=== PATIENT | female | born 1970 | race Caucasian/White ===

== ENCOUNTER 2017-11-18 06:28 | Inpatient (IN) | payer OTHER ==
[2017-11-18 06:35] LABS: ADD MAN DIFF? NO
[2017-11-18 06:36] LABS: WHITE BLOOD COUNT 4.5 10^3/ul (4.8-10.8)
[2017-11-18 06:36] LABS: BASOPHILS % 0.9 % (0.0-2.0); EOSINOPHILS # 0.1 10^3/ul (0.0-0.5); HEMATOCRIT 32.2 % (37.0-47.0); HEMOGLOBIN 10.3 g/dl (12.0-16.0); LYMPHOCYTES # 1.7 10^3/ul (0.8-2.9); LYMPHOCYTES % 36.6 % (15.0-51.0); MEAN CORPUSCULAR VOLUME 84.3 fl (82.0-101.0); MEAN PLATELET VOLUME 9.5 fl (7.4-10.4); MONOCYTE # 0.6 10^3/ul (0.3-0.9); MONOCYTES % 13.7 % (0.0-11.0); NEUTROPHIL # 2.1 10^3/ul (1.6-7.5); NEUTROPHILS % 46.4 % (39.0-77.0); PLATELET COUNT 349 10^3/UL (140-415); RED BLOOD COUNT 3.82 10^6/ul (4.20-5.40); RED CELL DISTRIBUTION WIDTH 13.7 % (11.5-14.5)
[2017-11-18] MEDS ORDERED: SODIUM CL BACTERIOSTATIC 30 ML INJ ×2 (06:56→08:43)
[2017-11-18] MEDS ORDERED: VASOPRESSIN 20 UNITS INJ ×2 (06:57→08:43)
[2017-11-18 07:00] LABS: INR 0.89; PROTIME 12.1 Sec (11.9-14.9); PT RATIO 0.9
[2017-11-18 07:01] LABS: PARTIAL THROMBOPLASTIN TIME 28.1 Sec (25.0-35.0)
[2017-11-18 07:04] LABS: ALANINE AMINOTRANSFERASE 47 IU/L (13-69); ALBUMIN 4.3 g/dl (3.3-4.9); ALBUMIN/GLOBULIN RATIO 1.38; ALKALINE PHOSPHATASE 66 IU/L (42-121); ANION GAP 15 (8-16); ASPARTATE AMINO TRANSFERASE 27 IU/L (15-46); BILIRUBIN,INDIRECT 0.5 mg/dl (0-1.1); BILIRUBIN,TOTAL 0.5 mg/dl (0.2-1.3); CARBON DIOXIDE 23 mmol/L (21-31); CHLORIDE 108 mmol/L (97-110); GLUCOSE 94 mg/dl (70-220); TOTAL PROTEIN 7.4 g/dl (6.1-8.1)
[2017-11-18 07:06] LABS: BLOOD UREA NITROGEN 11 mg/dl (7-20); POTASSIUM 3.9 mmol/L (3.5-5.1); SODIUM 142 mmol/L (135-144)
[2017-11-18] MEDS ORDERED: morphine SULFATE/PF (10 MG/10 ML) INJ (07:43)
[2017-11-18] MEDS ORDERED: MIDAZOLAM 1 MG/ML 2 ML INJ (07:43)
[2017-11-18] MEDS ORDERED: BUPIVACAINE 0.75%/DEXT (SPINAL) 2 ML INJ (07:50)
[2017-11-18 09:23] LABS: ADD UMIC YES; UR ASCORBIC ACID NEGATIVE (NEGATIVE); UR BACTERIA FEW /HPF (NONE SEEN); UR BILIRUBIN (Dip) NEGATIVE (NEGATIVE); UR BLOOD (Dip) NEGATIVE (NEGATIVE); UR CLARITY CLOUDY (CLEAR); UR COLOR YELLOW (YELLOW); UR GLUCOSE (Dip) NEGATIVE (NEGATIVE); UR KETONES (Dip) NEGATIVE (NEGATIVE); UR LEUKOCYTE ESTERASE (Dip) 1+ Leu/ul (NEGATIVE); UR MUCUS FEW /HPF (NONE SEEN); UR NITRITE (Dip) NEGATIVE (NEGATIVE); UR RBC 2 /HPF (0-5); UR SPECIFIC GRAVITY (Dip) 1.015 (1.003-1.030); UR SQUAMOUS EPITHELIAL CELL FEW /HPF (FEW); UR TOTAL PROTEIN (Dip) NEGATIVE (NEGATIVE); UR UROBILINOGEN (Dip) NEGATIVE (NEGATIVE); UR WBC 3 /HPF (0-5)
[2017-11-18] MEDS ORDERED: ROCURONIUM 50 MG INJ (09:59)
[2017-11-18] MEDS ORDERED: GLYCOPYRROLATE 0.4 MG INJ (09:59)
[2017-11-18] MEDS ORDERED: PROPOFOL 20 ML (09:59)
[2017-11-18] MEDS ORDERED: ONDANSETRON 4 MG INJ (09:59)
[2017-11-18] MEDS ORDERED: LIDOCAINE 2% (SDV) 5 ML INJ (09:59)
[2017-11-18] MEDS ORDERED: NEOSTIGMINE 3 MG/3 ML SYRINGE (09:59)
[2017-11-18] MEDS ORDERED: CEFAZOLIN 1 GM INJ (10:01)
[2017-11-18] MEDS ORDERED: METOCLOPRAMIDE 10 MG INJ IV (10:30)
[2017-11-18] MEDS ORDERED: ONDANSETRON 4 MG INJ IV (10:30)
[2017-11-18] MEDS ORDERED: ACETAMINOPHEN 325 MG TAB PO (10:30)
[2017-11-18] MEDS ORDERED: HYDROmorphONE 1 MG/5 ML IV SYRINGE IV (10:30)
[2017-11-18] MEDS: CEFAZOLIN 2 GM/50 ML (PMX) 50 ML IVPB ×3 (10:30→21:56)
[2017-11-18] MEDS ORDERED: IBUPROFEN 600 MG TAB PO (10:30)
[2017-11-18] MEDS ORDERED: KETOROLAC 30 MG INJ IV (10:30)
[2017-11-18] MEDS ORDERED: MEPERIDINE 25 MG INJ IV (10:30)
[2017-11-18] MEDS ORDERED: NALOXONE (0.4 MG/ML) INJ IV (10:30)
[2017-11-18] MEDS ORDERED: morphine 2 MG INJ IV (10:30)
[2017-11-18] MEDS ORDERED: FENTAnyl 50 MCG/ML VIAL IV (10:30)
[2017-11-18] MEDS ORDERED: DIPHENHYDRAMINE 50 MG INJ IV (10:30)
[2017-11-18] MEDS ORDERED: HYDROmorphONE 0.5 MG/0.5 ML SYG (10:33)
[2017-11-18] MEDS: HYDROmorphONE 1 MG/5 ML IV SYRINGE IV (10:58)
[2017-11-18] MEDS: metroNIDAZOLE 500 MG/NS (PMX) 100 ML IVPB ×2 (12:05→20:21)
[2017-11-18] MEDS: LACTATED RINGER'S 1,000 ML IV ×2 (12:05→21:06)
[2017-11-18] MEDS: ONDANSETRON 4 MG INJ IV (16:49)
[2017-11-18] MEDS ORDERED: DEXTROSE 5%-LR 1,000 ML IV ×3 (18:43→19:00)
[2017-11-18] MEDS: METOCLOPRAMIDE 10 MG INJ IV (19:06)
[2017-11-18] MEDS: DEXTROSE 5% IV (19:07)
[2017-11-18] MEDS: [UNRECOGNIZED DRUG - OTHER] IV (19:07)
[2017-11-18] MEDS: HYDROCODONE/APAP (5/325) TAB PO (21:24)
[2017-11-19] MEDS: metroNIDAZOLE 500 MG/NS (PMX) 100 ML IVPB (02:52)
[2017-11-19 05:15] LABS: ADD MAN DIFF? NO
[2017-11-19 05:20] LABS: WHITE BLOOD COUNT 6.3 10^3/ul (4.8-10.8)
[2017-11-19 05:20] LABS: BASOPHILS % 0.3 % (0.0-2.0); EOSINOPHILS % 0.5 % (0.0-7.0); HEMATOCRIT 26.7 % (37.0-47.0); HEMOGLOBIN 8.5 g/dl (12.0-16.0); LYMPHOCYTES # 1.3 10^3/ul (0.8-2.9); LYMPHOCYTES % 20.9 % (15.0-51.0); MEAN CORPUSCULAR HEMOGLOBIN 26.7 pg (29.0-33.0); MEAN CORPUSCULAR HGB CONC 31.8 g/dl (32.0-37.0); MEAN PLATELET VOLUME 10.2 fl (7.4-10.4); MONOCYTE # 0.9 10^3/ul (0.3-0.9); MONOCYTES % 14.5 % (0.0-11.0); NEUTROPHILS % 63.5 % (39.0-77.0); PLATELET COUNT 282 10^3/UL (140-415); RED BLOOD COUNT 3.18 10^6/ul (4.20-5.40); RED CELL DISTRIBUTION WIDTH 13.7 % (11.5-14.5)
[2017-11-19] MEDS: CEFAZOLIN 2 GM/50 ML (PMX) 50 ML IVPB (05:50)
[2017-11-19] MEDS: PANTOPRAZOLE 40 MG INJ IV (05:50)
[2017-11-19] MEDS: HYDROCODONE/APAP (5/325) TAB PO ×2 (05:56→21:19)
[2017-11-19] MEDS: LACTATED RINGER'S 1,000 ML IV ×3 (06:17→21:21)
[2017-11-19 06:57] LABS: ANION GAP 11 (8-16); BLOOD UREA NITROGEN 6 mg/dl (7-20); CALCIUM 8.5 mg/dl (8.4-10.2); CARBON DIOXIDE 25 mmol/L (21-31); CHLORIDE 107 mmol/L (97-110); CREATININE 0.71 mg/dl (0.44-1.00); GLUCOSE 94 mg/dl (70-220); POTASSIUM 4.4 mmol/L (3.5-5.1); SODIUM 139 mmol/L (135-144)
[2017-11-19] MEDS: IBUPROFEN 800 MG TAB NGT ×4 (09:26→22:28)
[2017-11-19] MEDS: ENOXAPARIN 40 MG/0.4 ML SYG SC (09:26)
[2017-11-19] MEDS ORDERED: IBUPROFEN 600 MG TAB PO (12:00)
[2017-11-19] MEDS: ONDANSETRON 4 MG INJ IV (13:40)
[2017-11-19] MEDS ORDERED: morphine LIQ (10 MG/5 ML) CUP PO (15:30)
[2017-11-20] MEDS: PANTOPRAZOLE 40 MG INJ IV (06:55)
[2017-11-20] MEDS: IBUPROFEN 800 MG TAB NGT (06:56)
[2017-11-20] MEDS: LACTATED RINGER'S 1,000 ML IV (07:18)
[2017-11-20] MEDS: ENOXAPARIN 40 MG/0.4 ML SYG SC (09:06)
[2017-11-20] MEDS: PHENAZOPYRIDINE 200 MG TAB PO (09:42)
== END 2017-11-20 12:00 | disposition home or self-care (01) | DRG 742 ==
LOC: REC 06:28 → MS1 11:55
PROC: 0UT90ZL Resection of Uterus, Supracervical, Open Approach (ICD-10-PCS; principal; 2017-11-18 07:30)
PROC: 0UT70ZZ Resection of Bilateral Fallopian Tubes, Open Approach (ICD-10-PCS; 2017-11-18 07:30)
PROC: 0T9B70Z Drainage of Bladder with Drainage Device, Via Natural or Artificial Opening (ICD-10-PCS; 2017-11-18 07:30)
DX: D25.9 Leiomyoma of uterus, unspecified (principal); D62 Acute posthemorrhagic anemia; D50.0 Iron deficiency anemia secondary to blood loss (chronic); R33.9 Retention of urine, unspecified
CPT/HCPCS: 80048; 80053; 81001; 85025; 85610; 85730; 86850; 86900; 86901; 88305